=== PATIENT | female | born 1985 | race Caucasian/White ===

== ENCOUNTER → 2017-06-12 | Outpatient (CLI) | payer OTHER | LOC: HPND 09:13 | PROVIDERS: ATTEND Obstetrics & Gynecology | DX: O35.2XX0 Maternal care for (suspected) hereditary disease in fetus, not applicable or unspecified (principal); O10.912 Unspecified pre-existing hypertension complicating pregnancy, second trimester | CPT/HCPCS: 76811 ==

== ENCOUNTER → 2017-08-01 | Outpatient (CLI) | payer OTHER | LOC: HPND 09:04 | PROVIDERS: ATTEND Obstetrics & Gynecology | DX: O09.892 Supervision of other high risk pregnancies, second trimester (principal); O35.2XX0 Maternal care for (suspected) hereditary disease in fetus, not applicable or unspecified | CPT/HCPCS: 76816 ==